=== PATIENT | female | born 1930 | race Caucasian/White ===

== ENCOUNTER 2017-10-27 22:37 | Inpatient (IN) | payer MEDICARE, OTHER ==
[2017-10-27 23:02] LABS: BASOPHILS % 0.2 % (0.0-1.0); EOSINOPHILS % 0.1 % (0.0-6.0); HEMATOCRIT 38.9 % (34.2-44.1); HEMOGLOBIN 12.1 g/dL (12.0-16.0); LYMPHOCYTES % 18.7 % (18.0-39.1); MEAN CORPUSCULAR HEMOGLOBIN 33.5 pg (28-32); MEAN CORPUSCULAR HGB CONC 31.1 g/dL (31-35); MEAN CORPUSCULAR VOLUME 107.8 fL (81-99); MONOCYTES # (AUTO) 0.7 (0.2-0.8); MONOCYTES % 4.2 % (4.4-11.3); NEUTROPHILS # (AUTO) 12.2 (2.1-6.9); NEUTROPHILS % 76.2 % (38.7-80.0); PLATELET COUNT 281 x10e3/uL (140-360); RED BLOOD COUNT 3.61 x10e6/uL (3.6-5.1); RED CELL DISTRIBUTION WIDTH 13.5 % (11.7-14.4)
[2017-10-27 23:14] LABS: INR 1.06; PARTIAL THROMBOPLASTIN TIME 34.8 seconds (23.8-35.5); PROTHROMBIN TIME 14.3 seconds (11.9-14.5)
[2017-10-27] MEDS ORDERED: VANCOMYCIN 1GM/NS 250 ML 250 ML IV STA (23:18)
[2017-10-27] MEDS ORDERED: SODIUM CHLORIDE 0.9% 1000ML 1,000 ML IV STA (23:21)
[2017-10-27 23:24] LABS: ALBUMIN/GLOBULIN RATIO 0.4 (0.8-2.0); ANION GAP 15.9 mmol/L (8-16); CALCIUM 9.6 mg/dL (8.4-10.2); CREATININE, SERUM 2.06 mg/dL (0.57-1.11); MAGNESIUM 2.1 MG/DL (1.3-2.1); POTASSIUM 3.9 mmol/L (3.5-5.1)
[2017-10-27 23:25] LABS: CREATINE KINASE MB 2.7 ng/mL (0.00-5.00)
[2017-10-27 23:26] LABS: B-TYPE NATRIURETIC PEPTIDE2 893.9 pg/mL (0-100)
[2017-10-27 23:28] LABS: BILIRUBIN,URINE NEGATIVE (NEGATIVE); KETONES,URINE NEGATIVE (NEGATIVE); LEUKOCYTE ESTERASE ,URINE 1+ (NEGATIVE); NITRITE,URINE NEGATIVE (NEGATIVE); URINE UROBILINOGEN 0.2 mg/dL (0.2 - 1)
[2017-10-27 23:30] LABS: CLARITY,URINE CLEAR (CLEAR); COLOR,URINE YELLOW (YELLOW); PROTEIN,URINE DIPSTICK TRACE (NEGATIVE)
[2017-10-27] MEDS ORDERED: CEFEPIME HCL 2 GM VIAL IV SCH (23:30)
[2017-10-27] MEDS ORDERED: CEFEPIME 2 GM/NS 0.9% 100 ML 100 ML IV SCH (23:30)
[2017-10-27] MEDS ORDERED: DOXYCYCLINE HYCLATE 100 MG in SODIUM CHLORIDE 0.9% 100 ML 100 ML IV SCH (23:30)
[2017-10-27 23:39] LABS: BACTERIA,URINE MANY /HPF; EPITHELIAL CELLS,URINE FEW /LPF
--- NOTE | 2017-10-27 23:44 | Diagnostic Imaging Report ---
EXAM: CHEST SINGLE (PORTABLE), AP 1 view ORDER DATE: 10/27/2017 10:53 PM Time stamp on exam: 2328 hours INDICATION: Cough, fever COMPARISON: None FINDINGS: LINES/TUBES: None LUNGS: Bronchial thickening and bibasilar atelectasis. PLEURA: No effusions or pneumothorax. HEART AND MEDIASTINUM: Normal size and contour. BONES AND SOFT TISSUES: No acute findings. IMPRESSION: Bronchial thickening could represent atypical/viral infection. Signed by: Dr. Anna Alamo M.D. on 10/27/2017 11:40 PM
[2017-10-28] VITALS (7 sets, daily range): BP systolic 131–155; BP diastolic 71–108
[2017-10-28] MEDS ORDERED: DILTIAZEM HCL 5 MG/ML 5 ML VIAL IV STA (00:10)
[2017-10-28] MEDS ORDERED: ACETAMINOPHEN 1000 MG/100 ML IV STA (00:35)
[2017-10-28] MEDS ORDERED: VANCOMYCIN 1GM/NS 250 ML 250 ML ONE (01:04)
[2017-10-28] MEDS ORDERED: CEFEPIME HCL 2 GM VIAL ONE (01:04)
[2017-10-28] MEDS ORDERED: DOXYCYCLINE HYCLATE 100 MG VIAL IV ONE (01:21)
[2017-10-28] MEDS ORDERED: SODIUM CHLORIDE 0.9% 100 ML 200 ML ONE (01:27)
[2017-10-28] MEDS ORDERED: LEVALBUTEROL HCL SOLN NEBU 0.63 MG/3 ML NEB INH PRN (02:45)
[2017-10-28] MEDS ORDERED: LEVALBUTEROL HCL SOLN NEBU 0.63 MG/3 ML NEB INH ONE (02:45)
[2017-10-28] MEDS ORDERED: IPRATROPIUM BROMIDE 0.02% 2.5 ML NEB NEB ONE (02:45)
[2017-10-28] MEDS ORDERED: IPRATROPIUM BROMIDE 0.02% 2.5 ML NEB NEB PRN (02:45)
[2017-10-28] MEDS ORDERED: DEXTROSE 50% SYRINGE 50 ML IV PRN (03:00)
[2017-10-28] MEDS ORDERED: ONDANSETRON HCL INJ 2 MG/ML VIAL IV PRN (03:00)
[2017-10-28] MEDS ORDERED: DEXTROSE 5% 1,000 ML IV ONE (03:00)
[2017-10-28] MEDS ORDERED: LANTUS 3ML100 UNITS/ SQ (03:12)
[2017-10-28] MEDS ORDERED: IMIPENEM-CILAS500 MG IV (03:12)
[2017-10-28] MEDS ORDERED: RISPERDAL25 MG/2 ML IM (03:12)
[2017-10-28] MEDS ORDERED: IPRAT-ALBUT 0.5-3 ML INH (03:12)
[2017-10-28] MEDS ORDERED: ROBITUSSIN-COU237 ML PO (03:12)
[2017-10-28] MEDS ORDERED: LEVOTHYROXINE50 MCG PO (03:12)
--- OUTSIDE RECORDS SUMMARY | 2017-10-28 03:31 | XMS REPORT ---
[facility] Address Unknown Phone Unavailable Care Team Providers Care Miniature Set Builder Name Role Phone BASIA AMOS Unavailable Unavailable Problems This patient has no known problems. Allergies, Adverse Reactions, Alerts This patient has no known allergies or adverse reactions. Medications This patient has no known medications. Results Test Description Test Time Test Comments Text Results Atomic Results Result Comments CHEST SINGLE (PORTABLE) [place] [address] Patient Name: KILLIAN SPRAGUE MR #: [id number] : 1930 Age/Sex: 87/F Req #: [id number] Adm Physician: Ordered by: BASIA AMOS MD Report #: [id number] Location: ER Room/Bed: Procedure: [id number] DX/CHEST SINGLE (PORTABLE) Exam Date: Exam Time: REPORT STATUS: Signed EXAM: CHEST SINGLE (PORTABLE ), AP 1 view ORDER DATE: 10/27/2017 10:53 PM Time stamp on exam: 2328 hours INDICATION: Cough, fever COMPARISON: None FINDINGS: LINES/TUBES: None LUNGS: Bronchial thickening and bibasilar atelectasis. PLEURA: No effusions or pneumothorax. HEART AND MEDIASTINUM: Normal size and contour. BONES AND SOFT TISSUES: No acute findings. IMPRESSION: Bronchial thickening could represent atypical/viral infection. Signed by: Dr. Aneesh Baker M.D. on 10/27/2017 11:40 PM Dictated By: ANEESH BAKER MD 39 Transcribed By : ARABELLA on 10/27/172339 COPY TO: BASIA AMOS MD
[2017-10-28] MEDS: DILTIAZEM HCL 5 MG/ML 5 ML VIAL IV PRN (03:44)
[2017-10-28] MEDS: LEVOTHYROXINE SODIUM 50 MCG TAB PO SCH (07:30)
[2017-10-28] MEDS: INSULIN REGULAR, HUMAN 100 UNIT/1 ML 3ML VIAL SQ SCH ×4 (08:30→21:00)
[2017-10-28] MEDS: FAMOTIDINE 20 MG/2 ML VIAL IV SCH ×2 (09:00→21:39)
[2017-10-28] MEDS: CEFEPIME HCL 2 GM VIAL IV SCH (11:17)
[2017-10-28 11:37] LABS: BASOPHILS % 0.2 % (0.0-1.0); EOSINOPHILS % 0.2 % (0.0-6.0); HEMATOCRIT 33.5 % (34.2-44.1); HEMOGLOBIN 10.4 g/dL (12.0-16.0); LYMPHOCYTES # (AUTO) 2.2 (1.0-3.2); LYMPHOCYTES % 17.2 % (18.0-39.1); MEAN CORPUSCULAR HEMOGLOBIN 33.7 pg (28-32); MEAN CORPUSCULAR VOLUME 108.4 fL (81-99); MONOCYTES # (AUTO) 0.6 (0.2-0.8); MONOCYTES % 4.3 % (4.4-11.3); NEUTROPHILS % 77.1 % (38.7-80.0); PLATELET COUNT 230 x10e3/uL (140-360); RED BLOOD COUNT 3.09 x10e6/uL (3.6-5.1); RED CELL DISTRIBUTION WIDTH 13.6 % (11.7-14.4)
[2017-10-28 11:56] LABS: ALBUMIN 1.8 g/dL (3.5-5.0); ALBUMIN/GLOBULIN RATIO 0.4 (0.8-2.0); ANION GAP 10.6 mmol/L (8-16); CALCIUM 8.5 mg/dL (8.4-10.2); CREATININE, SERUM 1.77 mg/dL (0.57-1.11); POTASSIUM 3.6 mmol/L (3.5-5.1)
[2017-10-28 13:04] LABS: CREATINE KINASE MB 2.9 ng/mL (0.00-5.00)
[2017-10-28] MEDS: DEXTROSE 5% 1,000 ML IV SCH (15:00)
[2017-10-28] MEDS ORDERED: METOPROLOL TARTRATE INJ 1 MG/ML VIAL IV PRN (16:15)
[2017-10-28] MEDS: AZITHROMYCIN 500MG/NS 250 ML 250 ML IV SCH (18:00)
--- NOTE | 2017-10-28 18:14 | History and Physical ---
PRIMARY CARE PROVIDER: Dr. Tyler Welsh at [facility]. CHIEF COMPLAINT: Fever, cough and decreased level of consciousness with severely decreased p.o. intake for the past couple of weeks even. HISTORY OF PRESENT ILLNESS: Ms. Ross is an 87-year-old lady who resides at [facility] long-term care. In the last couple weeks, the patient's condition has deteriorated. Her level of consciousness has declined. She has baseline dementia which has gotten a lot worse and depression has gotten a lot worse. The patient is basically nonverbal and has been uncooperative with p.o. intake of fluid, food and medication. Over the last few days she developed a rattling cough with some fever and so was transported to the [facility] for evaluation. REVIEW OF SYSTEMS: Unobtainable as the patient is nonverbal. PAST MEDICAL HISTORY: Significant for hypertension, type 2 diabetes, chronic kidney disease stage 4, severe advanced dementia and possibly an old stroke. REGULAR MEDICATIONS: Lantus insulin 20 units daily. DuoNeb treatments q.6 hours. Cough medicine. Risperdal 25 mg IM every 14 days and levothyroxine 100 mcg daily. ALLERGIES: SHE HAS A STATED ALLERGY TO PENICILLINS, HALOPERIDOL AND SULFA DRUGS. FAMILY HISTORY: Unknown. SOCIAL HISTORY: The patient is a resident of [facility]. She does not smoke, drink or use illegal drugs. She is mostly bedridden and requires assistance for all ADLs including has to be fed and the patient apparently has not been cooperative with that recently. PHYSICAL EXAM: PSYCHIATRIC: The patient is awake. She is nonverbal, appears confused and disoriented. She has a normal body habitus and is in no acute distress. VITAL SIGNS: Blood pressure 132/71. Pulse 96 and irregularly irregular. Respiratory rate 20. O2 sat 94%. Temperature 99.6. HEENT: Head is atraumatic. Her eyes are anicteric with clear conjunctivae. Ears and nares are without erythema or discharge. Oropharynx is clear. NECK: Is supple with no mass or thyromegaly. LYMPHATIC SYSTEM: She has no palpable cervical, axillary or inguinal adenopathy. CARDIOVASCULAR: Her heart has an irregularly irregular rhythm. Her pulse rate was in the 140 to 160 range when she presented. It is currently down around 95 to 96 after receiving multiple fluid boluses and some IV diltiazem. RESPIRATORY: Lungs reveal some scattered bronchial congestion and rhonchi. She has no wheezing and she has normal respiratory effort and a productive cough. GASTROINTESTINAL: Abdomen is soft without organomegaly, masses or tenderness. Normal bowel sounds present. CUTANEOUS: Her skin is warm and dry to touch with no rash or skin breakdown. MUSCULOSKELETAL: Joints are normal alignment without erythema or swelling. She has no calf tenderness. NEUROLOGIC: Exam is nonfocal. Patient is nonverbal but cranial nerves are intact and she has no motor or sensory deficits. She does not follow commands. DIAGNOSTIC STUDIES: Chest x-ray shows bronchial thickening and cuffing consistent with bronchopneumonia. Her flu screen is negative. Her strep screen is negative. Her UA has 6 to 10 red cells, 11 to 20 white cells and many bacteria. Lactic acid 21.1 which is elevated. BNP 893.9 which is elevated. Troponin 0.275 and 0.157. Her chemistry profile shows sodium 154, chloride 122, potassium 3.9. CO2 20. Glucose 249. Creatinine 2.06. BUN 60 for a GFR of 23. Calcium is 9.6. After overnight hydration with half normal saline bolus followed by a D5 water maintenance, her electrolytes show a sodium of 151, chloride 123, potassium 3.6. CO2 21. Creatinine 1.77. BUN 55 for a GFR of 27. Calcium is 8.5. Her CBC shows a white count of 16.02 with 76% neutrophils, 19% lymphocytes, 4% monocytes, hemoglobin 12.1, hematocrit 38.9 and platelet count turning 281,000. Coags are normal. Transaminases, bilirubin and alkaline phos are normal. IMPRESSION AND PLAN 1. Urinary tract infection with sepsis. The patient received IV fluid bolus and is now on IV D5 water maintenance. Will receive IV cefepime and vancomycin empirically pending urine culture report. 2. Bronchopneumonia. The patient will receive IV Zithromax along with nebulizer treatments. 3. Hypernatremia/dehydration. Patient received IV fluid bolus and is now on D5 water at present. She does not cooperate at this point with any p.o. intake. The family has been notified and are aware of this, they are okay with us getting GI to see her about a possible PEG placement. 4. New onset atrial fibrillation with rapid ventricular response. The patient has been getting IV Cardizem and her metoprolol as needed for elevated heart rate and has remained under some control with that regimen as the patient cannot take p.o. at this time until her PEG is placed. Will continue with those IV medications. 5. Hypertension with chronic kidney disease stage 4. Again will continue with IV medicines for now. Cardizem and metoprolol. 6. Type 2 diabetes with chronic kidney disease stage 4. Will continue sliding scale insulin for now. 7. For prophylaxis, the patient will be getting heparin for DVT prophylaxis and Pepcid for GI prophylaxis. Job#: [id number]
[2017-10-28] MEDS: HEPARIN SOD (PORCINE) 5,000 UNIT/ML VIAL SC SCH (21:43)
[2017-10-29] VITALS: BP 114/71
[2017-10-29] MEDS: CEFEPIME HCL 2 GM VIAL IV SCH ×2 (00:01→11:30)
[2017-10-29 00:13] LABS: CREATINE KINASE MB 2.7 ng/mL (0.00-5.00)
[2017-10-29 04:00] VITALS: BP 139/76
[2017-10-29] MEDS: DEXTROSE 5% 1,000 ML IV SCH (05:37)
[2017-10-29 07:00] LABS: BASOPHILS % 0.2 % (0.0-1.0); EOSINOPHILS # (AUTO) 0.1 (0.0-0.4); HEMATOCRIT 35.2 % (34.2-44.1); HEMOGLOBIN 10.8 g/dL (12.0-16.0); LYMPHOCYTES # (AUTO) 2.7 (1.0-3.2); LYMPHOCYTES % 23.3 % (18.0-39.1); MEAN CORPUSCULAR HEMOGLOBIN 33.4 pg (28-32); MEAN CORPUSCULAR HGB CONC 30.7 g/dL (31-35); MONOCYTES # (AUTO) 0.5 (0.2-0.8); MONOCYTES % 4.3 % (4.4-11.3); NEUTROPHILS % 70.2 % (38.7-80.0); PLATELET COUNT 212 x10e3/uL (140-360); RED BLOOD COUNT 3.23 x10e6/uL (3.6-5.1); RED CELL DISTRIBUTION WIDTH 13.1 % (11.7-14.4)
[2017-10-29] MEDS: INSULIN REGULAR, HUMAN 100 UNIT/1 ML 3ML VIAL SQ SCH ×4 (07:30→21:00)
[2017-10-29] MEDS: LEVOTHYROXINE SODIUM 50 MCG TAB PO SCH (07:30)
[2017-10-29 07:31] LABS: ANION GAP 8.4 mmol/L (8-16); CALCIUM 8.3 mg/dL (8.4-10.2); CREATININE, SERUM 1.54 mg/dL (0.57-1.11); MAGNESIUM 1.5 MG/DL (1.3-2.1); POTASSIUM 3.4 mmol/L (3.5-5.1)
[2017-10-29 07:54] LABS: THYROID STIMULATING HORMONE 2.549 uIU/mL (0.350-4.940)
[2017-10-29 08:00] VITALS: BP_SYST 117; BP_SYST 150; BP_DIAS 110; BP_DIAS 67
--- NOTE | 2017-10-29 08:56 | Diagnostic Imaging Report ---
EXAMINATION: Chest, CHEST SINGLE (PORTABLE) INDICATION: Chest pain COMPARISON: Portable chest 10/27/2017 FINDINGS: LINES: None. Heart: Normal cardiac silhouette. Vascular: The pulmonary vasculature is within normal limits. Atherosclerotic calcifications of the aortic arch. Mediastinum: No mediastinal, hilar, or axillary mass or lymphadenopathy. Lungs: No parenchymal mass. No focal consolidation. Bibasilar atelectasis. Pleura: No pleural effusion. No pneumothorax. Bones: No acute osseous abnormality. Degenerative changes of the thoracic spine. Soft tissues: Normal. Impression: No acute radiographic abnormality. Signed by: Dr. Chris Quinones M.D. on 10/29/2017 8:53 AM
[2017-10-29] MEDS: FAMOTIDINE 20 MG/2 ML VIAL IV SCH ×2 (09:00→21:34)
[2017-10-29] MEDS: HEPARIN SOD (PORCINE) 5,000 UNIT/ML VIAL SC SCH ×2 (10:34→22:00)
[2017-10-29 12:00] VITALS: BP 185/107
[2017-10-29] MEDS ORDERED: HYDRALAZINE HCL 20 MG/ML VIAL IV ONE (12:30)
[2017-10-29] MEDS: DILTIAZEM HCL 5 MG/ML 5 ML VIAL IV PRN ×2 (12:35→21:36)
[2017-10-29] MEDS ORDERED: METOPROLOL TARTRATE INJ 1 MG/ML VIAL IV ONE ×2 (15:00→16:00)
[2017-10-29] MEDS ORDERED: BISACODYL 10 MG SUPP PR ONE (15:15)
[2017-10-29] MEDS ORDERED: ACETAMINOPHEN 650 MG SUPP PR PRN (15:15)
[2017-10-29] MEDS ORDERED: LABETALOL HCL IV 5 MG/ML 20ML MDV IV PRN (15:15)
[2017-10-29 16:00] VITALS: BP 100/60
[2017-10-29] MEDS: AZITHROMYCIN 500MG/NS 250 ML 250 ML IV SCH (17:00)
[2017-10-29 20:00] VITALS: BP 142/74
[2017-10-30] VITALS (7 sets, daily range): BP systolic 104–140; BP diastolic 66–90
[2017-10-30] MEDS: CEFEPIME HCL 2 GM VIAL IV SCH ×3 (03:00→23:42)
[2017-10-30] MEDS: LEVOTHYROXINE SODIUM 50 MCG TAB PO SCH (07:30)
[2017-10-30] MEDS: INSULIN REGULAR, HUMAN 100 UNIT/1 ML 3ML VIAL SQ SCH ×4 (07:30→21:00)
[2017-10-30] MEDS: HEPARIN SOD (PORCINE) 5,000 UNIT/ML VIAL SC SCH ×2 (09:00→20:22)
[2017-10-30] MEDS: FAMOTIDINE 20 MG/2 ML VIAL IV SCH ×2 (09:44→20:21)
[2017-10-30] MEDS: PANTOPRAZOLE 40 MG 10ML VIAL IV SCH ×2 (13:24→23:42)
[2017-10-30] MEDS ORDERED: MEROPENEM 500MG 500 MG in SODIUM CHLORIDE 0.9% 50ML 50 ML IV SCH (13:30)
[2017-10-30] MEDS: KETOROLAC TROMETHAMINE 30 MG/ML VIAL IV PRN ×2 (14:00→22:52)
[2017-10-30] MEDS: MEROPENEM 500 MG VIAL IV SCH (14:00)
--- NOTE | 2017-10-30 14:25 | Operative Report ---
DATE OF PROCEDURE: October 30, 2017 REFERRING PHYSICIAN: Dr. Anna Marie Amin PROCEDURE PERFORMED: Esophagogastroduodenoscopy with percutaneous endoscopic gastrostomy tube placement. INDICATIONS FOR EGD: Failure to thrive, patient not eating, dementia. MEDICATION: Patient was done under MAC. Please see anesthesiologist's note. PROCEDURE: With the patient in the supine position, the flexible fiberoptic Olympus gastroscope was introduced into the esophagus under direct visualization without any difficulty. There was some patchy erythema noted in the distal esophagus. The scope was then advanced with ease into the stomach. The mucosa overlying the antrum and the body revealed some patchy intense erythema. The pylorus was of normal contour and shape. It was intubated with ease, and the scope was advanced all the way to the 2nd portion of the duodenum. The scope was then withdrawn slowly. The mucosa overlying the proximal 2nd portion and the duodenal bulb appeared to be within normal limits. The scope was withdrawn back into the stomach and retroflexed. Mucosa overlying the fundus and cardia appeared to be within limits. The scope was then straightened out, and PEG tube placement was carried out in usual fashion after delineating a safe entry point through external digital palpation and transabdominal illumination. The scope was subsequently withdrawn after documenting an adequate positioning of the intragastric bumper. Patient tolerated the procedure well. IMPRESSION 1. Distal esophagitis. 2. Gastritis. 3. Percutaneous endoscopic gastrostomy tube placement carried out in the usual fashion. Patient tolerated the procedure well. PLAN: G-tube to drain to gravity to a Manuel bag times 24 hours, then can use. Job#: [id number] cc:ANNA MARIE AMIN MD
--- NOTE | 2017-10-30 17:44 | Diagnostic Imaging Report ---
PROCEDURE: A single AP view of the chest. COMPARISON: Chest radiograph from 10/29/2017 INDICATIONS: PICC PLACEMENT FINDINGS: Lines/tubes: Right upper extremity PICC line has its tip at the cavoatrial junction. Lungs: Bibasilar atelectasis. There is no evidence of pneumonia or pulmonary edema. Pleura: There is no pleural effusion or pneumothorax. Heart and mediastinum: Normal heart size. Atherosclerosis of the thoracic aorta. Bones: No acute bony abnormality. IMPRESSION: 1. Right upper extremity PICC line has its tip at the cavoatrial junction. 2. No other important changes. Dictated by: Maikol Lombardo M.D. on 10/30/2017 at 17:54 Electronically approved by: Maikol Lombardo M.D. on 10/30/2017 at 17:54
[2017-10-30] MEDS: AZITHROMYCIN 500MG/NS 250 ML 250 ML IV SCH (18:04)
[2017-10-30] MEDS ORDERED: LIDOCAINE HCL 2% LOCAL INJ 5 ML SDV VIAL INJ ONE (18:38)
[2017-10-30] MEDS ORDERED: PROPOFOL IV EMULSION 10 MG/ML 50 ML VIAL ONE (18:38)
[2017-10-30] MEDS ORDERED: DEXTROSE 5%/0.45% SOD CHL 1,000 ML IV SCH ×2 (22:15→22:45)
[2017-10-31] VITALS (7 sets, daily range): BP systolic 126–192; BP diastolic 66–106
[2017-10-31] MEDS: MEROPENEM 500 MG VIAL IV SCH ×2 (02:11→13:48)
[2017-10-31] MEDS: KETOROLAC TROMETHAMINE 30 MG/ML VIAL IV PRN ×2 (04:17→10:20)
[2017-10-31] MEDS: LEVOTHYROXINE SODIUM 50 MCG TAB PO SCH (07:30)
[2017-10-31] MEDS: INSULIN REGULAR, HUMAN 100 UNIT/1 ML 3ML VIAL SQ SCH ×4 (07:30→21:00)
[2017-10-31] MEDS: FAMOTIDINE 20 MG/2 ML VIAL IV SCH (09:06)
[2017-10-31] MEDS: HEPARIN SOD (PORCINE) 5,000 UNIT/ML VIAL SC SCH ×2 (09:07→21:44)
[2017-10-31] MEDS: CEFEPIME HCL 2 GM VIAL IV SCH ×2 (10:31→23:11)
[2017-10-31 11:40] LABS: HEMATOCRIT 34.5 % (34.2-44.1); HEMOGLOBIN 10.7 g/dL (12.0-16.0); MEAN CORPUSCULAR HEMOGLOBIN 33.5 pg (28-32); MEAN CORPUSCULAR VOLUME 108.2 fL (81-99); PLATELET COUNT 222 x10e3/uL (140-360); RED BLOOD COUNT 3.19 x10e6/uL (3.6-5.1); RED CELL DISTRIBUTION WIDTH 12.8 % (11.7-14.4)
[2017-10-31 11:59] LABS: ANION GAP 13.4 mmol/L (8-16); CALCIUM 8.2 mg/dL (8.4-10.2); CREATININE, SERUM 1.67 mg/dL (0.57-1.11); POTASSIUM 3.4 mmol/L (3.5-5.1)
[2017-10-31] MEDS: PANTOPRAZOLE 40 MG 10ML VIAL IV SCH (12:17)
[2017-10-31] MEDS: DILTIAZEM HCL 5 MG/ML 5 ML VIAL IV PRN ×2 (13:49→20:55)
[2017-10-31] MEDS ORDERED: POTASSIUM CHLORIDE 20MEQ/15ML UDC NG ONE (15:00)
[2017-10-31] MEDS: AZITHROMYCIN 500MG/NS 250 ML 250 ML IV SCH (17:45)
[2017-10-31] MEDS ORDERED: DIGOXIN INJ 0.25 MG/ML 2 ML AMP IV ONE (22:15)
[2017-10-31] MEDS ORDERED: AMIODARONE HCL 200 MG TAB PEG ONE (22:15)
[2017-10-31] MEDS ORDERED: METOPROLOL TARTRATE INJ 1 MG/ML VIAL IV PRN (22:15)
[2017-10-31] MEDS ORDERED: AMIODARONE HCL 200 MG TAB PO ONE (23:15)
[2017-11-01] MEDS: KETOROLAC TROMETHAMINE 30 MG/ML VIAL IV PRN
[2017-11-01] MEDS: PANTOPRAZOLE 40 MG 10ML VIAL IV SCH ×2 (00:22→12:00)
[2017-11-01] MEDS: FAMOTIDINE 20 MG/2 ML VIAL IV SCH ×3 (00:22→21:43)
--- NOTE | 2017-11-01 01:11 | Progress Note ---
DATE: PCP: Dr. Tyler Welsh. SCRAPER HAND: Dr. Maynor Hays. CHIEF COMPLAINT: Acute renal failure insufficiency, atrial fibrillation, dehydration, hypernatremia, and sepsis. ALLERGIES: AMOXICILLIN, AMPICILLIN, HALOPERIDOL, SULFA, AND PENICILLIN. SUBJECTIVE: No new issues. Patient is alone at this time. Patient continues to be nonverbal today. MEDICATIONS: Please see MAR. OBJECTIVE VITAL SIGNS: Temperature 97.7, pulse 96, blood pressure 142/67, respirations 18, satting 98%, and weight 170. GENERAL: Patient is awake. LUNGS: Decreased breath sounds. HEENT: Extraocular muscles are intact. ABDOMEN: Soft. Bowel sounds present. It is nontender and nondistended. Patient has a PEG tube in place with a binder. Patient has not been started on feedings as yet. CARDIOVASCULAR: Irregularly irregular heart rate. NECK: Supple. EXTREMITIES: No calf tenderness or edema noted. NEUROLOGICAL: Nonfocal. LABS: None. DIAGNOSES 1. Urinary tract infection with sepsis. We will continue with intravenous antibiotics. Patient has Escherichia coli extended spectrum beta lactamase. Patient did get her peripherally inserted central catheter line, right upper arm. 2. Bronchopneumonia, continue with pulmonary toileting, continue with intravenous antibiotics, and continue with Mucomyst. 3. Hypernatremia. We will get a complete blood count and basic metabolic panel in the morning. 4. Atrial fibrillation with rapid ventricular response. Continue on metoprolol. 5. Status post percutaneous endoscopic gastrostomy tube placement. We will get dietitian for recommendations on feedings. We will await gastroenterology's recommendation to start the feedings as well. 6. History of hypokalemia. We will get a basic metabolic panel in the morning as well as complete blood count. Dictated by Johan Purdy NP Job#: [id number]
[2017-11-01] MEDS: MEROPENEM 500 MG VIAL IV SCH ×2 (02:47→15:15)
[2017-11-01 06:37] VITALS: BP 179/84
[2017-11-01] MEDS: INSULIN REGULAR, HUMAN 100 UNIT/1 ML 3ML VIAL SQ SCH ×4 (08:00→21:45)
[2017-11-01] MEDS: AMIODARONE HCL 200 MG TAB PO SCH (08:00)
[2017-11-01] MEDS: LEVOTHYROXINE SODIUM 50 MCG TAB PO SCH (08:00)
[2017-11-01] MEDS: HYDRALAZINE HCL 25 MG TAB PO SCH ×2 (08:00→17:15)
[2017-11-01] MEDS: HEPARIN SOD (PORCINE) 5,000 UNIT/ML VIAL SC SCH ×2 (08:15→21:45)
[2017-11-01] MEDS ORDERED: POTASSIUM CHLORIDE 20MEQ/15ML UDC NG NR (09:30)
[2017-11-01 12:00] VITALS: BP 177/83
[2017-11-01] MEDS: CEFEPIME HCL 2 GM VIAL IV SCH ×2 (12:00→23:30)
--- NOTE | 2017-11-01 12:33 | Consultation ---
DATE OF CONSULTATION: November 01, 2017 CARDIOLOGY CONSULTATION REQUESTING PHYSICIAN: Dr. Amin INDICATIONS: Consultation. REASON FOR CONSULTATION: New-onset AFib. HPI: This is an 87-year-old female resident of a long term that presented with altered mental status, fever, cough and decreased p.o. intake. Patient is nonverbal, and information was received from the medical record and the bedside nurse. She was not able to tolerate p.o. at the long term. She also has a history of dementia. Her depression got worse, and she was not alert. She was brought over here for evaluation. She had a new PEG tube placement done. She was found to be in AFib with RVR, and cardiology was consulted. She is not able to verbalize any need and has multiple medical problems. PAST MEDICAL HISTORY: Hypothyroidism, gastritis, distal esophagitis, CKD, diabetes, sepsis, UTI, pneumonia CVA, dementia, hypertension and multiple UTIs. PAST SURGICAL HISTORY: PEG tube placement. FAMILY HISTORY: Noncontributory. SOCIAL HISTORY: Lives in a long term. MEDICATIONS: See med list. ALLERGIES: SEE CHART. SHE HAS MULTIPLE ALLERGIES. REVIEW OF SYSTEMS: Unable to obtain. She is not able to verbalize. PHYSICAL EXAMINATION VITALS: Temperature 98, heart rate 90, blood pressure 160/80, respirations 15, oxygen saturation 97% on 2 L nasal cannula. GENERAL: She is awake and noncommunicative. HEENT: Mucous membranes are dry. NECK: Supple. LUNGS: Bilateral with decreased breath sounds. CARDIOVASCULAR: Irregularly irregular. ABDOMEN: Soft. EXTREMITIES: Bilateral lower extremities with no edema. NEUROLOGIC: She is not able to follow any commands or move any extremities. LABS: Sodium 145, potassium 3.4, chloride 119, CO2 16, BUN 33, creatinine 1.67, glucose 192. White blood cells 9.70, hemoglobin 10.7, hematocrit 34.5, platelets 222. PT 14.3, PTT 34.8, and INR 1.06. IMPRESSION 1. Atrial fibrillation. 2. Hypothyroidism. 3. Dementia. 4. Recent percutaneous endoscopic gastrostomy tube placement. 5. Sacral decubitus. 6. Pneumonia. 7. Urinary tract infection. 8. Sepsis. 9. History of cerebrovascular accident. ASSESSMENT AND PLAN: We will go ahead and get an echo to assess the LV and valve function. Will continue p.o. amiodarone. Will go ahead and hold off on anticoagulation for now due to risk for fall. Replace potassium. Further cardiac workup pending clinical course. Thank you for this consultation. Dictated by Cesar Byrne NP. Job#: [id number]
[2017-11-01 16:00] VITALS: BP 174/85
[2017-11-01] MEDS: METOPROLOL TARTRATE 25 MG TAB PO SCH (17:15)
[2017-11-01] MEDS: AZITHROMYCIN 500MG/NS 250 ML 250 ML IV SCH (17:15)
[2017-11-01 21:00] VITALS: BP 145/78
[2017-11-01] MEDS ORDERED: AMIODARONE HCL 200 MG TAB PEG ONE (22:15)
[2017-11-01 22:53] VITALS: BP 153/68
[2017-11-02 02:03] VITALS: BP 145/71
[2017-11-02] MEDS: PANTOPRAZOLE 40 MG 10ML VIAL IV SCH ×2 (02:03→12:30)
[2017-11-02] MEDS: METOPROLOL TARTRATE 25 MG TAB PO SCH ×4 (02:03→17:55)
[2017-11-02] MEDS: MEROPENEM 500 MG VIAL IV SCH ×2 (02:03→15:00)
[2017-11-02 06:11] VITALS: BP 179/75
[2017-11-02] MEDS: LEVOTHYROXINE SODIUM 50 MCG TAB PO SCH (07:20)
[2017-11-02] MEDS: INSULIN REGULAR, HUMAN 100 UNIT/1 ML 3ML VIAL SQ SCH ×3 (07:45→16:50)
[2017-11-02] MEDS: FAMOTIDINE 20 MG/2 ML VIAL IV SCH (08:20)
[2017-11-02] MEDS: AMIODARONE HCL 200 MG TAB PO SCH (08:20)
[2017-11-02] MEDS: HYDRALAZINE HCL 25 MG TAB PO SCH ×2 (08:20→16:51)
[2017-11-02] MEDS: HEPARIN SOD (PORCINE) 5,000 UNIT/ML VIAL SC SCH (08:40)
[2017-11-02 11:42] VITALS: BP 141/64
[2017-11-02] MEDS: CEFEPIME HCL 2 GM VIAL IV SCH (12:00)
[2017-11-02 16:08] VITALS: BP 126/71
[2017-11-02] MEDS: AZITHROMYCIN 500MG/NS 250 ML 250 ML IV SCH (16:51)
--- NOTE | 2017-11-02 17:46 | Progress Note ---
DATE: PCP: Dr. Tyler Welsh. CONSULTANTS 1. Dr. Rohan Calderon. 2. Dr. Maynor Hays. CHIEF COMPLAINT: Acute renal insufficiency, atrial fibrillation, dehydration, hypernatremia, and sepsis. SUBJECTIVE: No new issues. Patient is alone at this time. MEDICATIONS: Please see MAR. OBJECTIVE VITALS: Temperature 98.3, pulse 112, respirations 18, blood pressure 179/84. GENERAL: Patient is awake, alert. No verbal response. NECK: Supple. EXTREMITIES: No calf tenderness. LUNGS: Decreased breath sounds. CARDIOVASCULAR: Irregularly irregular heart rate. HEENT: Extraocular muscles are intact ABDOMEN: Soft. Bowel sounds present. It is nontender and nondistended. Has a PEG tube in place. NEUROLOGICAL: Nonfocal. DIAGNOSES 1. Urinary tract infection with sepsis: Will continue with intravenous antibiotics. Has Escherichia coli extended spectrum beta lactamase. Pending transfer to [facility] once accepted. Has a peripherally inserted central catheter line in place. 2. Bronchopneumonia: Will continue with intravenous antibiotic and pulmonary toileting. 3. Hypernatremia, stable. 4. Atrial fibrillation with rapid ventricular rate: Will continue with metoprolol. Patient's heart rate is 112 today. Patient had an echocardiogram done and shows an ejection fraction of 50% to 55% on preliminary results. 5. Status post percutaneous endoscopic gastrostomy tube: Tolerating feedings well. 6. Hypokalemia: Will continue to monitor potassium. Patient is pending a discharge to [facility] term acute [facility]. Dictated by Johan Purdy NP. Job#: [id number]
[2017-11-02 20:00] VITALS: BP 120/58
== END 2017-11-02 20:43 | DRG 871 ==
LOC: EDBD 22:37 → ER 22:37 → ERHOLD 10-28 03:28 → MED/SURG3 10-28 04:22
PROVIDERS: ADMIT Internal Medicine; ATTEND Internal Medicine
PROC: 02HV33Z Insertion of Infusion Device into Superior Vena Cava, Percutaneous Approach (ICD-10-PCS; 2017-10-30)
PROC: 0DH68UZ Insertion of Feeding Device into Stomach, Via Natural or Artificial Opening Endoscopic (ICD-10-PCS; principal; 2017-10-30 11:41)
DX: A41.9 Sepsis, unspecified organism (principal); J18.9 Pneumonia, unspecified organism; E87.0 Hyperosmolality and hypernatremia; N18.4 Chronic kidney disease, stage 4 (severe); Z93.1 Gastrostomy status; I48.0 Paroxysmal atrial fibrillation; N39.0 Urinary tract infection, site not specified; F03.90 Unspecified dementia, unspecified severity, without behavioral disturbance, psychotic disturbance, mood disturbance, and anxiety; R62.7 Adult failure to thrive; E03.9 Hypothyroidism, unspecified; Z86.73 Personal history of transient ischemic attack (TIA), and cerebral infarction without residual deficits; E87.6 Hypokalemia; E86.0 Dehydration; I12.9 Hypertensive chronic kidney disease with stage 1 through stage 4 chronic kidney disease, or unspecified chronic kidney disease; Z66 Do not resuscitate; B96.20 Unspecified Escherichia coli [E. coli] as the cause of diseases classified elsewhere; Z68.30 Body mass index [BMI] 30.0-30.9, adult
CPT/HCPCS: 36415; 36569; 71045; 80048; 80053; 81001; 82550; 82553; 82948; 83518; 83605; 83735; 83880; 84443; 84484; 85007; 85025; 85027; 85610; 85730; 87040; 87070; 87086; 87186; 87400; 93005; 93306; 94640; 96360; 96374; 96375; 96376; 99284; J0360; J0456; J0692; J1160; J1644; J1885; J2001; J2185; J3370; J7030; J7070; J7799